=== PATIENT | male | born 1990 | race Caucasian/White ===

== ENCOUNTER 2016-08-12 03:09 | Inpatient (IN) | payer OTHER ==
[2016-08-11 03:15] VITALS: O2SAT 100
[~2016-08-12] VITALS: Ht 175.3 cm; Wt 70.0 kg
[2016-08-12] VITALS (16 sets, daily range): BP systolic 83–127; BP diastolic 50–82; PULSE 51–140; RESP 17–25; TEMP 97.8–98.7; O2SAT 96–100
[2016-08-12] MEDS ORDERED: ONDANSETRON HCL 4 MG/2 ML VIAL ONE (03:23)
[2016-08-12] MEDS ORDERED: MIDAZOLAM HCL 5 MG/ML VIAL (1 ML) ONE (03:23)
[2016-08-12] MEDS ORDERED: ceFAZolin 2 GM PREMIX 50 ML ONE (03:23)
[2016-08-12] MEDS ORDERED: LIDOCAINE 1%/EPINEPHrine 1:100,000 SOLN 20 ML VIAL ONE (03:26)
[2016-08-12] MEDS ORDERED: ceFAZolin 2 GM PREMIX 50 ML IV STA (03:30)
[2016-08-12] MEDS ORDERED: ONDANSETRON HCL 4 MG/2 ML VIAL IV ONE (03:30)
[2016-08-12 03:34] LABS: I-STAT POTASSIUM 3.2 MMOL/L (3.5-4.9)
[2016-08-12 03:36] LABS: AUTOMATED NEUTROPHIL # 3.8 TH/MM3 (1.8-7.7); BASOPHIL % 0.5 % (0.0-2.0); EOSINOPHIL # 0.2 TH/MM3 (0-0.4); EOSINOPHIL % 2.3 % (0.0-4.0); HEMATOCRIT 35.3 % (39.0-51.0); HEMO FLAGS DIFF FINAL; LYMPHOCYTE # 2.5 TH/MM3 (1.0-4.8); MEAN CELL VOLUME 91.7 FL (80.0-100.0); MEAN CORPUSCULAR HEMOGLOBIN 32.5 PG (27.0-34.0); MEAN CORPUSCULAR HGB CONC 35.5 % (32.0-36.0); MONO % 12.1 % (0.0-8.0); NEUT % 51.1 % (16.0-70.0); PLATELET COUNT 227 TH/MM3 (150-450); RED BLOOD COUNT 3.85 MIL/MM3 (4.50-5.90); RED CELL DISTRIBUTION WIDTH 12.4 % (11.6-17.2); WHITE BLOOD COUNT 7.4 TH/MM3 (4.0-11.0)
[2016-08-12] MEDS: LACTATED RINGER'S 1000 ML INJ 1,000 ML IV SCH ×2 (03:40→14:30)
[2016-08-12] MEDS ORDERED: DIPHTH/TETANUS/ACEL PERTUSSIS (BOOSTER) 0.5 ML VIAL/PFS IM ONE (03:46)
[2016-08-12 03:48] LABS: APTT (PATIENT) 28.5 SEC (24.3-30.1); INTERNATIONAL NORMALIZED RATIO 1.2 RATIO; PROTHROMBIN TIME - PATIENT 13.5 SEC (9.8-11.6)
[2016-08-12] MEDS ORDERED: IOHEXOL 350 MG/ML 10 ML VIAL (for RAD DIAG) IV ONE (03:55)
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
--- NOTE | 2016-08-12 03:58 | RADRPT ---
EXAM DATE/TIME: 08/12/2016 03:09 [facility] COMPARISON: CHEST SINGLE AP, August 12, 2016, 3:09. INDICATIONS : Left sided chest tube placement. MEDICAL HISTORY : None. SURGICAL HISTORY : None. ENCOUNTER: Subsequent ACUITY: 1 day PAIN SCORE: 10/10 LOCATION: Left chest FINDINGS: Right lung is clear. Heart size normal. There is left lung consolidation greatest in the left lower l obe. Interval placement of a left-sided chest tube, and a small left apical pneumothorax is identifie d. Osseous structures are intact. CONCLUSION: Left lung consolidation and small left apical pneumothorax. Carlin Mantilla MD on August 12, 2016 at 3:56 Board Certified Radiologist. This report was verified electronically.
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
[2016-08-12] MEDS ORDERED: CHLORHEXIDINE GLUCONATE 2 % 1 PACK (2 CLOTHS) TOP PRN (04:30)
[2016-08-12] MEDS ORDERED: ONDANSETRON HCL 4 MG/2 ML VIAL IV PRN (04:30)
[2016-08-12] MEDS ORDERED: MISCELLANEOUS NURSING INFORMATION XX SCH (04:30)
[2016-08-12] MEDS ORDERED: MAGNESIUM HYDROXIDE SUSP 30 ML CUP PO PRN (04:30)
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
[2016-08-12 05:43] LABS: AUTOMATED NEUTROPHIL # 7.9 TH/MM3 (1.8-7.7); BASOPHIL # 0.1 TH/MM3 (0-0.2); BASOPHIL % 0.5 % (0.0-2.0); EOSINOPHIL # 0.2 TH/MM3 (0-0.4); EOSINOPHIL % 1.4 % (0.0-4.0); HEMATOCRIT 33.7 % (39.0-51.0); HEMO FLAGS DIFF FINAL; LYMPH % 19.4 % (9.0-44.0); LYMPHOCYTE # 2.1 TH/MM3 (1.0-4.8); MEAN CELL VOLUME 89.3 FL (80.0-100.0); MEAN CORPUSCULAR HEMOGLOBIN 30.3 PG (27.0-34.0); MONO % 6.8 % (0.0-8.0); NEUT % 71.9 % (16.0-70.0); PLATELET COUNT 243 TH/MM3 (150-450); RED BLOOD COUNT 3.78 MIL/MM3 (4.50-5.90); RED CELL DISTRIBUTION WIDTH 14.5 % (11.6-17.2)
[2016-08-12] MEDS ORDERED: SODIUM CHLOR 0.9% 250 ML INJ 250 ML IV ONE (05:45)
[2016-08-12 06:09] LABS: BLOOD GAS BASE EXCESS 0.2 mmol/L (-2-2); BLOOD GAS CARBOXYHEMOGLOBIN 2.8 % (0-4); BLOOD GAS HCO3 25 mmol/L (22-26); BLOOD GAS METHEMOGLOBIN 1.9 % (0-2); BLOOD GAS O2 HGB SATURATION 93 % (90-100); BLOOD GAS OXYGEN CONTENT 16.2 Vol % (12.0-20.0); BLOOD GAS PCO2 42 mmHg (38-42); BLOOD GAS PO2 104 mmHG (61-120); BLOOD GAS TOTAL HGB 12.3 G/DL (12.0-16.0)
[2016-08-12 06:10] LABS: CRITICAL VALUE NO; DRAW SITE RT RADIAL; LITER FLOW 2 L/M; NUMBER OF ARTERIAL PUNCTURES 1; OXYGEN DEVICE NASAL CANNULA; STAT YES; ULNAR PULSE PRESENT
[2016-08-12] MEDS ORDERED: TRANEXAMIC ACID INJ 700 MG in SODIUM CHLORIDE 0.9% INJ 100 ML IV ONE (06:15)
[2016-08-12] MEDS ORDERED: TRANEXAMIC ACID 1 GM PRIOR TO PROCEDURE IV SCH ×2 (08:00)
[2016-08-12] MEDS ORDERED: TRANEXAMIC ACID 1 GM POST-OP IV SCH ×2 (08:30)
[2016-08-12] MEDS: DOCUSATE SODIUM 100 MG CAP PO SCH ×2 (09:00→19:59)
[2016-08-12] MEDS: BACITRACIN TOP OINT 15 GM TUBE TOP SCH ×2 (09:00→20:00)
[2016-08-12] MEDS: ACETAMINOPHEN 325 MG TAB PO PRN (12:45)
[2016-08-12] MEDS: CYCLOBENZAPRINE HCL 10 MG TAB PO PRN (15:38)
[2016-08-12] MEDS ORDERED: DO NOT ADM ANY ANTICOAGULANT DRUGS XX PRN (18:27)
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
[2016-08-12] MEDS: FAMOTIDINE 20 MG TAB PO SCH (19:59)
[2016-08-12 23:18] LABS: HEMATOCRIT 27.1 % (39.0-51.0); REVIEW FLAG FINAL
[2016-08-13] VITALS: BP 101/54; PULSE 85; RESP 19; TEMP 97.2; O2SAT 96
[2016-08-13] MEDS: LACTATED RINGER'S 1000 ML INJ 1,000 ML IV SCH ×3 (00:32→21:40)
[2016-08-13] MEDS: CHLORHEXIDINE GLUCONATE 2 % 1 PACK (2 CLOTHS) TOP SCH (03:54)
[2016-08-13 04:00] VITALS: BP 110/58; PULSE 90; RESP 21; TEMP 96.8; O2SAT 93
[2016-08-13 06:44] LABS: AUTOMATED NEUTROPHIL # 3.5 TH/MM3 (1.8-7.7); BASOPHIL % 0.5 % (0.0-2.0); EOSINOPHIL # 0.2 TH/MM3 (0-0.4); EOSINOPHIL % 3.1 % (0.0-4.0); HEMATOCRIT 25.9 % (39.0-51.0); HEMO FLAGS DIFF FINAL; LYMPH % 34.3 % (9.0-44.0); LYMPHOCYTE # 2.3 TH/MM3 (1.0-4.8); MEAN CELL VOLUME 87.9 FL (80.0-100.0); MEAN CORPUSCULAR HEMOGLOBIN 31.2 PG (27.0-34.0); MEAN CORPUSCULAR HGB CONC 35.5 % (32.0-36.0); MONO % 11.2 % (0.0-8.0); NEUT % 50.9 % (16.0-70.0); PLATELET COUNT 148 TH/MM3 (150-450); RED BLOOD COUNT 2.94 MIL/MM3 (4.50-5.90); RED CELL DISTRIBUTION WIDTH 14.8 % (11.6-17.2); WHITE BLOOD COUNT 6.8 TH/MM3 (4.0-11.0)
[2016-08-13 06:51] LABS: BICARBONATE 29.2 MEQ/L (21.0-32.0); POTASSIUM 3.5 MEQ/L (3.5-5.1)
[2016-08-13 08:00] VITALS: BP 105/55; PULSE 80; RESP 17; TEMP 98.6; O2SAT 95
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
[2016-08-13] MEDS: CYCLOBENZAPRINE HCL 10 MG TAB PO PRN ×3 (09:44→21:38)
[2016-08-13] MEDS: DOCUSATE SODIUM 100 MG CAP PO SCH ×2 (09:51→21:38)
[2016-08-13] MEDS ORDERED: INFLUENZA VIRUS VACCINE (QUADRIVALENT) 0.5 ML SYR IM ONE (10:00)
[2016-08-13] MEDS ORDERED: PNEUMOCOCCAL POLYVALENT INJ 25 MCG/0.5 ML SYR IM ONE (10:00)
[2016-08-13 12:00] VITALS: BP 111/58; PULSE 78; RESP 18; TEMP 98.4; O2SAT 95
[2016-08-13 14:02] VITALS: O2SAT 94
[2016-08-13] MEDS: ACETAMINOPHEN 325 MG TAB PO PRN ×2 (14:15→21:38)
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
[2016-08-13 20:00] VITALS: BP 119/58; PULSE 95; RESP 17; TEMP 97.2; O2SAT 97
[2016-08-13] MEDS: FAMOTIDINE 20 MG TAB PO SCH (21:38)
[2016-08-13] MEDS: BACITRACIN TOP OINT 15 GM TUBE TOP SCH (21:40)
[2016-08-14] VITALS: BP 114/60; PULSE 87; RESP 17; TEMP 97; O2SAT 99
[2016-08-14] MEDS: CHLORHEXIDINE GLUCONATE 2 % 1 PACK (2 CLOTHS) TOP SCH (04:00)
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
[2016-08-14] MEDS: CYCLOBENZAPRINE HCL 10 MG TAB PO PRN ×2 (04:44→21:54)
[2016-08-14] MEDS: ACETAMINOPHEN 325 MG TAB PO PRN (04:45)
[2016-08-14] MEDS: LACTATED RINGER'S 1000 ML INJ 1,000 ML IV SCH (04:49)
[2016-08-14 04:58] LABS: HEMATOCRIT 24.7 % (39.0-51.0); REVIEW FLAG FINAL
[2016-08-14 08:00] VITALS: BP 117/65; PULSE 85; RESP 18; TEMP 97.4; O2SAT 99
[2016-08-14] MEDS ORDERED: LACTULOSE SYRUP 20 GM/30 ML CUP PO ONE (09:00)
[2016-08-14 12:00] VITALS: BP 119/73; PULSE 85; RESP 18; TEMP 97.6; O2SAT 98
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
[2016-08-14 20:00] VITALS: BP 116/63; PULSE 93; RESP 17; TEMP 99.1; O2SAT 99
[2016-08-14] MEDS: FAMOTIDINE 20 MG TAB PO SCH (21:54)
[2016-08-14] MEDS: DOCUSATE SODIUM 100 MG CAP PO SCH (21:54)
[2016-08-15] VITALS (8 sets, daily range): BP systolic 110–120; BP diastolic 55–66; PULSE 80–95; RESP 17–20; TEMP 96.9–99.6; O2SAT 95–100
[2016-08-15] MEDS: CHLORHEXIDINE GLUCONATE 2 % 1 PACK (2 CLOTHS) TOP SCH (03:57)
[2016-08-15 05:25] LABS: REVIEW FLAG FINAL
[2016-08-15] MEDS: CYCLOBENZAPRINE HCL 10 MG TAB PO PRN ×2 (05:49→21:40)
[2016-08-15 05:53] LABS: BICARBONATE 31.2 MEQ/L (21.0-32.0); POTASSIUM 3.6 MEQ/L (3.5-5.1)
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
[2016-08-15] MEDS ORDERED: LACTULOSE SYRUP 20 GM/30 ML CUP PO ONE (07:30)
[2016-08-15] MEDS: DOCUSATE SODIUM 100 MG CAP PO SCH ×2 (09:45→21:40)
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
[2016-08-15] MEDS: FAMOTIDINE 20 MG TAB PO SCH (21:40)
[2016-08-15] MEDS: ACETAMINOPHEN 325 MG TAB PO PRN (21:40)
[2016-08-15] MEDS: SODIUM CHLORIDE 0.9% FLUSH 5 ML FLUSH IVF PRN (21:40)
[2016-08-16] VITALS: BP 117/57; PULSE 83; RESP 18; TEMP 97.8; O2SAT 100
[2016-08-16] MEDS: CHLORHEXIDINE GLUCONATE 2 % 1 PACK (2 CLOTHS) TOP SCH (00:56)
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
[2016-08-16 08:00] VITALS: BP 107/63; PULSE 77; RESP 17; TEMP 97.4; O2SAT 99
[2016-08-16] MEDS: DOCUSATE SODIUM 100 MG CAP PO SCH ×2 (08:30→21:21)
[2016-08-16] MEDS: CYCLOBENZAPRINE HCL 10 MG TAB PO PRN ×2 (08:32→16:53)
[2016-08-16 10:47] VITALS: O2SAT 100
[2016-08-16 12:00] VITALS: BP 121/73; PULSE 92; RESP 17; TEMP 96.8; O2SAT 100
[2016-08-16] MEDS: ACETAMINOPHEN 325 MG TAB PO PRN ×2 (13:51→21:21)
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
[2016-08-16 16:00] VITALS: BP 116/72; PULSE 95; RESP 17; TEMP 97.9; O2SAT 100
[2016-08-16 20:00] VITALS: BP 107/55; PULSE 97; RESP 26; TEMP 98.6; O2SAT 100
[2016-08-16] MEDS: FAMOTIDINE 20 MG TAB PO SCH (21:21)
[2016-08-17] VITALS (7 sets, daily range): BP systolic 116–142; BP diastolic 60–84; PULSE 89–130; RESP 16–26; TEMP 96.8–99.9; O2SAT 96–99
[2016-08-17] MEDS: CHLORHEXIDINE GLUCONATE 2 % 1 PACK (2 CLOTHS) TOP SCH (04:00)
[2016-08-17] MEDS: CYCLOBENZAPRINE HCL 10 MG TAB PO PRN ×2 (05:28→19:41)
[2016-08-17] MEDS: ACETAMINOPHEN 325 MG TAB PO PRN ×2 (05:29→19:41)
[2016-08-17] MEDS: DOCUSATE SODIUM 100 MG CAP PO SCH ×2 (08:34→19:40)
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
[2016-08-17] MEDS: FAMOTIDINE 20 MG TAB PO SCH (19:40)
[2016-08-17] MEDS ORDERED: oxyCODONE/ACETAMINOPHEN 5 MG/325 MG TAB PO PRN (20:15)
[2016-08-17] MEDS: MORPHINE SULFATE 4 MG/ML INJ IV PRN (20:18)
[2016-08-17] MEDS: oxyCODONE/ACETAMINOPHEN 5 MG/325 MG TAB PO PRN (21:40)
[2016-08-18] VITALS: BP 128/77; PULSE 97; RESP 17; TEMP 98.2; O2SAT 97
[2016-08-18] MEDS: MORPHINE SULFATE 4 MG/ML INJ IV PRN ×4 (00:01→17:17)
[2016-08-18] MEDS: CHLORHEXIDINE GLUCONATE 2 % 1 PACK (2 CLOTHS) TOP SCH ×2 (01:28→21:24)
[2016-08-18] MEDS: oxyCODONE/ACETAMINOPHEN 5 MG/325 MG TAB PO PRN ×5 (02:06→21:24)
[2016-08-18] MEDS: CYCLOBENZAPRINE HCL 10 MG TAB PO PRN ×3 (05:05→21:24)
[2016-08-18 07:36] VITALS: BP 119/69; PULSE 106; RESP 18; TEMP 99.5; O2SAT 94
[2016-08-18] MEDS ORDERED: LACTULOSE SYRUP 20 GM/30 ML CUP PO ONE (08:30)
[2016-08-18] MEDS: DOCUSATE SODIUM 100 MG CAP PO SCH ×2 (08:47→21:00)
[2016-08-18 08:59] VITALS: O2SAT 95
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
[2016-08-18 12:00] VITALS: BP 115/67; PULSE 111; RESP 24; TEMP 99.2; O2SAT 92
[2016-08-18 16:00] VITALS: BP 111/69; PULSE 107; RESP 20; TEMP 98.5; O2SAT 92
--- NOTE | 2016-08-18 16:47 | RADRPT ---
EXAM DATE/TIME: 08/18/2016 16:19 [facility] COMPARISON: CHEST SINGLE AP, August 17, 2016, 15:20. INDICATIONS : Chest tube removal. MEDICAL HISTORY : None. SURGICAL HISTORY : None. ENCOUNTER: Subsequent ACUITY: 4 - 6 days PAIN SCORE: 6/10 LOCATION: Left chest. FINDINGS: A single view of the chest demonstrates interval removal of a left thoracostomy tube. Accounting for rightward rotation, the hemithoraces remain symmetric. There is no pneumothorax there is increasing airspace disease in the left hemithorax with possible associated effusion. Right lung remains clear. Accounting for technique, heart size is normal. Osseous structures are intact. CONCLUSION: 1. Interval removal of left thoracostomy tube without pneumothorax. 2. However, there is increasing airspace disease in the left chest with possible associated effusion. 3. Right lung remains clear. Stanley Smith MD on August 18, 2016 at 16:43 Board Certified Radiologist. This report was verified electronically.
[2016-08-18 19:20] VITALS: BP 121/73; PULSE 107; RESP 28; TEMP 98.7; O2SAT 91
[2016-08-18] MEDS: FAMOTIDINE 20 MG TAB PO SCH (21:24)
[2016-08-19] VITALS: BP_SYST 118; BP_SYST 119; BP_DIAS 64; BP_DIAS 68; PULSE 98; RESP 18; RESP 24; TEMP 97.8; TEMP 98.1; O2SAT 91
[2016-08-19] MEDS: SODIUM CHLORIDE 0.9% FLUSH 5 ML FLUSH IVF PRN ×3 (00:13→08:47)
[2016-08-19] MEDS: MORPHINE SULFATE 4 MG/ML INJ IV PRN ×3 (00:13→08:46)
[2016-08-19] MEDS: oxyCODONE/ACETAMINOPHEN 5 MG/325 MG TAB PO PRN ×2 (05:45→13:27)
[2016-08-19] MEDS: CYCLOBENZAPRINE HCL 10 MG TAB PO PRN (05:45)
[2016-08-19 08:00] VITALS: BP 109/66; PULSE 106; RESP 20; TEMP 98.5; O2SAT 95
[2016-08-19] MEDS: DOCUSATE SODIUM 100 MG CAP PO SCH (08:47)
[2016-08-19] MEDS ORDERED: BISACODYL 10 MG SUPP RECTAL ONE (09:00)
[2016-08-19] MEDS ORDERED: BISACODYL EC 5 MG TABEC PO ONE (09:00)
[2016-08-19 12:00] VITALS: BP 112/68; PULSE 111; RESP 20; TEMP 98; O2SAT 94
[2016-08-19] MEDS ORDERED: MILKSUS PO (13:32)
[2016-08-19] MEDS ORDERED: DOCU1CAP39 PO (13:32)
[2016-08-19] MEDS ORDERED: ACET325T PO (13:32)
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
[2016-08-19] MEDS: ACETAMINOPHEN 325 MG TAB PO PRN (17:02)
== END 2016-08-19 17:17 | disposition home or self-care (01) | DRG 964 ==
LOC: NEPI 03:09 → NEDA 03:56 → EDBD 03:56 → NEDA 04:27 → N03A 07:18 → N07B 20:44
PROVIDERS: ADMIT Surgery; ATTEND Surgery
PROC: 0W9B30Z Drainage of Left Pleural Cavity with Drainage Device, Percutaneous Approach (ICD-10-PCS; principal; 2016-08-12)
PROC: 30233N1 Transfusion of Nonautologous Red Blood Cells into Peripheral Vein, Percutaneous Approach (ICD-10-PCS; 2016-08-12)
DX: S36.113A Laceration of liver, unspecified degree, initial encounter (principal); S27.0XXA Traumatic pneumothorax, initial encounter; T79.7XXA Traumatic subcutaneous emphysema, initial encounter; S31.610A Laceration without foreign body of abdominal wall, right upper quadrant with penetration into peritoneal cavity, initial encounter; X99.1XXA Assault by knife, initial encounter; Y93.9 Activity, unspecified; Y92.9 Unspecified place or not applicable; Z23 Encounter for immunization
CPT/HCPCS: 32551; 36430; 36600; 71010; 71260; 74177; 80048; 82435; 82565; 82805; 82947; 83605; 84132; 84295; 84520; 85014; 85018; 85025; 85610; 85730; 86850; 86900; 86901; 86920; 90686; 90715; 90732; 94150; 96374; 96375; 99291; 99292; G0390; J0690; J2250; J2270; J2405; J3010; J7050; J7120; P9016; Q2038; Q9967

== ENCOUNTER 2016-08-21 05:57 | Inpatient (IN) | payer OTHER ==
[~2016-08-21] VITALS: Ht 182.9 cm; Wt 76.3 kg
[2016-08-21] VITALS (8 sets, daily range): BP systolic 100–114; BP diastolic 55–65; PULSE 92–100; RESP 19–36; TEMP 98.1–99.3; O2SAT 92–96
[~2016-08-21 05:57] MED LIST: ACET325T PO; DOCU1CAP39 PO; MILKSUS PO
--- NOTE | 2016-08-21 07:44 | RADRPT ---
EXAM DATE/TIME: 08/21/2016 07:17 [facility] COMPARISON: CHEST SINGLE AP, August 18, 2016, 16:19. INDICATIONS : Shortness of breath. MEDICAL HISTORY : None. SURGICAL HISTORY : Left chest tube ENCOUNTER: Initial ACUITY: 1 week PAIN SCORE: 5/10 LOCATION: Left chest FINDINGS: A single portable frontal view of the chest shows no interval change. There is parenchymal consolidat ion involving the left lung most pronounced within the mid and lower lobe. Suspected small left effus ion. Right lung is clear. Heart is normal in size. Mild scoliotic curvature. No pneumothorax. CONCLUSION: Unchanged left lung consolidation with small effusion. Isaac Dumont Jr., MD on August 21, 2016 at 7:41 Board Certified Radiologist. This report was verified electronically.
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
[2016-08-21] MEDS ORDERED: SODIUM CHLOR 0.9% 1000 ML INJ 1,000 ML IV ONE ×2 (07:56)
[2016-08-21] MEDS ORDERED: VANCOMYCIN INJ 1 MG in SODIUM CHLOR 0.9% 250 ML INJ 250 ML IV STA (07:56)
[2016-08-21] MEDS ORDERED: SODIUM CHLOR 0.9% 1000 ML INJ 100 ML IV ONE (07:56)
[2016-08-21] MEDS ORDERED: PIPERACIL-TAZO 4.5 GM PREMIX 100 ML IV STA (07:56)
[2016-08-21 09:22] LABS: AUTOMATED NEUTROPHIL # 9.6 TH/MM3 (1.8-7.7); BASOPHIL % 0.3 % (0.0-2.0); EOSINOPHIL # 0.1 TH/MM3 (0-0.4); EOSINOPHIL % 0.9 % (0.0-4.0); HEMATOCRIT 26.1 % (39.0-51.0); HEMO FLAGS DIFF FINAL; LYMPH % 10.9 % (9.0-44.0); LYMPHOCYTE # 1.3 TH/MM3 (1.0-4.8); MEAN CELL VOLUME 88.1 FL (80.0-100.0); MEAN CORPUSCULAR HEMOGLOBIN 30.6 PG (27.0-34.0); MEAN CORPUSCULAR HGB CONC 34.8 % (32.0-36.0); MONO % 9.9 % (0.0-8.0); PLATELET COUNT 517 TH/MM3 (150-450); RED BLOOD COUNT 2.96 MIL/MM3 (4.50-5.90); RED CELL DISTRIBUTION WIDTH 14.5 % (11.6-17.2); WHITE BLOOD COUNT 12.3 TH/MM3 (4.0-11.0)
[2016-08-21 09:38] LABS: BACTERIA, URINE RARE /hpf; BLOOD, URINE SMALL (NEG); COMMENT (UR) CATH-CULTURE IND; CULTURE IF INDICATED CATH CULTURE IND; GLUCOSE,URINE NEG (NEG); KETONE, URINE NEG (NEG); NITRITE,URINE NEG (NEG); PH, URINE 6.5 (5.0-8.5); URINE COLOR YELLOW (YELLW/STRAW)
[2016-08-21 09:49] LABS: ALKALINE PHOSPHATASE 163 U/L (45-117); ALT (GPT) 67 U/L (12-78); ANION GAP 7 MEQ/L (5-15); AST (GOT) 146 U/L (15-37); BICARBONATE 28.3 MEQ/L (21.0-32.0); BLOOD UREA NITROGEN 16 MG/DL (7-18); CHLORIDE 99 MEQ/L (98-107); GLOMERULAR FILTRATION RATE 126 ML/MIN (>89); POTASSIUM 3.5 MEQ/L (3.5-5.1); SODIUM (NA) 134 MEQ/L (136-145)
[2016-08-21] MEDS ORDERED: ONDANSETRON HCL 4 MG/2 ML VIAL IV PRN (10:30)
[2016-08-21] MEDS ORDERED: Post-op Orders (for Pharmacy) MISC XX ONE (10:30)
[2016-08-21] MEDS ORDERED: NALOXONE HCL 0.4 MG/ML AMP IV PRN ×2 (10:30→18:45)
[2016-08-21] MEDS ORDERED: MORPHINE SULFATE 4 MG/ML INJ IV PRN (10:30)
[2016-08-21] MEDS ORDERED: SODIUM CHLORIDE 0.9% FLUSH 5 ML FLUSH IVF PRN ×2 (10:30→18:45)
[2016-08-21] MEDS: PANTOPRAZOLE SODIUM 40 MG VIAL IV SCH (11:12)
[2016-08-21] MEDS: SODIUM CHLOR 0.9% 1000 ML INJ 1,000 ML IV SCH ×2 (11:13→20:28)
[2016-08-21] MEDS ORDERED: PHENYLEPH/NS 1000 MCG/10 ML SYR IV ONE (12:00)
[2016-08-21] MEDS ORDERED: NORMOSOL R INJ 1,000 ML IV ONE (12:00)
[2016-08-21] MEDS ORDERED: PROPOFOL 200 MG/20 ML AMP IV ONE (12:00)
[2016-08-21] MEDS ORDERED: SODIUM CHLORID 0.9% 500 ML INJ 500 ML IV ONE (12:00)
[2016-08-21] MEDS ORDERED: ONDANSETRON HCL 4 MG/2 ML VIAL IV PUSH ONE (12:00)
[2016-08-21] MEDS ORDERED: FAMOTIDINE 20 MG/2 ML VIAL ONE (15:36)
[2016-08-21] MEDS ORDERED: MIDAZOLAM HCL 2 MG/2 ML VIAL ONE (15:36)
[2016-08-21] MEDS ORDERED: SUGAMMADEX SODIUM 200 MG/2 ML VIAL IV PUSH ONE ×2 (17:03)
[2016-08-21] MEDS ORDERED: fentaNYL CITRATE 250 MCG/5 ML AMP ONE ×2 (18:50)
[2016-08-21] MEDS ORDERED: MORPHINE SULFATE 4 MG/ML INJ ONE (18:50)
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
[2016-08-21] MEDS ORDERED: DO NOT ADM ANY ANTICOAGULANT DRUGS XX PRN (19:30)
[2016-08-21] MEDS: PIPERACIL-TAZO 4.5 GM PREMIX 100 ML IV SCH (20:00)
[2016-08-21] MEDS: DOCUSATE SODIUM 100 MG CAP PO SCH (21:00)
[2016-08-21] MEDS ORDERED: SODIUM CHLORIDE 0.9% FLUSH 5 ML FLUSH IVF SCH (21:00)
[2016-08-21] MEDS: SODIUM CHLORIDE 0.9% FLUSH 5 ML FLUSH IVF SCH (21:00)
[2016-08-21] MEDS: PCA - TOTAL MG MORPHINE DELIVERED PER SHIFT SCH (22:00)
[2016-08-21] MEDS: VANCOMYCIN INJ 1,000 MG in SODIUM CHLOR 0.9% 250 ML INJ 250 ML IV SCH (23:30)
[2016-08-22] VITALS (12 sets, daily range): BP systolic 114–129; BP diastolic 61–83; PULSE 98–112; RESP 18–26; TEMP 98–101; O2SAT 92–99
[2016-08-22] MEDS: SODIUM CHLOR 0.9% 1000 ML INJ 1,000 ML IV SCH (04:46)
[2016-08-22] MEDS: PIPERACIL-TAZO 4.5 GM PREMIX 100 ML IV SCH ×3 (04:46→19:51)
[2016-08-22] MEDS: MORPHINE SULFATE 30 MG/30 ML PCA IV SCH (04:47)
[2016-08-22 04:51] LABS: AUTOMATED NEUTROPHIL # 8.6 TH/MM3 (1.8-7.7); BASOPHIL % 0.3 % (0.0-2.0); EOSINOPHIL # 0.3 TH/MM3 (0-0.4); EOSINOPHIL % 2.1 % (0.0-4.0); HEMATOCRIT 25.4 % (39.0-51.0); LYMPH % 18.2 % (9.0-44.0); LYMPHOCYTE # 2.2 TH/MM3 (1.0-4.8); MEAN CELL VOLUME 88.9 FL (80.0-100.0); MEAN CORPUSCULAR HEMOGLOBIN 30.3 PG (27.0-34.0); MONO % 9.3 % (0.0-8.0); NEUT % 70.1 % (16.0-70.0); PLATELET COUNT 585 TH/MM3 (150-450); RED BLOOD COUNT 2.85 MIL/MM3 (4.50-5.90); RED CELL DISTRIBUTION WIDTH 14.8 % (11.6-17.2); WHITE BLOOD COUNT 12.3 TH/MM3 (4.0-11.0)
[2016-08-22 04:56] LABS: HEMO FLAGS AUTO DIFF
[2016-08-22 05:10] LABS: BICARBONATE 27.6 MEQ/L (21.0-32.0); POTASSIUM 3.7 MEQ/L (3.5-5.1)
[2016-08-22 05:29] LABS: SCAN/DIFF AUTO DIFF CONFIRMED
[2016-08-22] MEDS: PCA - TOTAL MG MORPHINE DELIVERED PER SHIFT SCH ×3 (06:00→22:00)
--- NOTE | 2016-08-22 06:50 | RADRPT ---
EXAM DATE/TIME: 08/22/2016 06:10 [facility] COMPARISON: CHEST SINGLE AP, August 21, 2016, 7:17. INDICATIONS : Post thoracotomy. MEDICAL HISTORY : None. SURGICAL HISTORY : Chest tube, left. ENCOUNTER: Subsequent ACUITY: 1 week PAIN SCORE: Non-responsive. LOCATION: Bilateral chest FINDINGS: The cardiac silhouette is enlarged in transverse diameter. There is left lower lobe atelectasis versu s pneumonia. A left chest tube is in place. There is no evidence of pneumothorax. The right lung is f ree of acute parenchymal opacity. CONCLUSION: 1. Postsurgical changes following left thoracotomy. There is no evidence of pneumothorax. Isaac Reyes MD on August 22, 2016 at 6:48 Board Certified Radiologist. This report was verified electronically.
[2016-08-22] MEDS: VANCOMYCIN INJ 1,000 MG in SODIUM CHLOR 0.9% 250 ML INJ 250 ML IV SCH ×2 (08:06→19:51)
[2016-08-22] MEDS: SODIUM CHLORIDE 0.9% FLUSH 5 ML FLUSH IVF SCH ×2 (08:07→20:11)
[2016-08-22] MEDS: DOCUSATE SODIUM 100 MG CAP PO SCH ×2 (08:08→19:50)
[2016-08-22] MEDS ORDERED: INFLUENZA VIRUS VACCINE (QUADRIVALENT) 0.5 ML SYR IM ONE (09:00)
[2016-08-22] MEDS ORDERED: PNEUMOCOCCAL POLYVALENT INJ 25 MCG/0.5 ML SYR IM ONE (09:00)
[2016-08-22] MEDS: PANTOPRAZOLE SODIUM 40 MG VIAL IV SCH (11:00)
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
[2016-08-23 00:59] VITALS: BP 118/55; PULSE 109; RESP 21; TEMP 100.4; O2SAT 94
[2016-08-23] MEDS: PIPERACIL-TAZO 4.5 GM PREMIX 100 ML IV SCH ×3 (03:16→20:00)
[2016-08-23] MEDS: MORPHINE SULFATE 30 MG/30 ML PCA IV SCH (03:17)
[2016-08-23 04:27] VITALS: BP 109/59; PULSE 111; RESP 21; TEMP 100.8; O2SAT 93
[2016-08-23] MEDS: PCA - TOTAL MG MORPHINE DELIVERED PER SHIFT SCH ×3 (05:42→21:24)
--- NOTE | 2016-08-23 06:35 | RADRPT ---
EXAM DATE/TIME: 08/23/2016 05:28 [facility] COMPARISON: CHEST SINGLE AP, August 22, 2016, 6:10. INDICATIONS : Shortness of breath. MEDICAL HISTORY : None. SURGICAL HISTORY : Thoracotomy. ENCOUNTER: Subsequent ACUITY: 1 week PAIN SCORE: Non-responsive. LOCATION: Bilateral chest FINDINGS: The cardiac silhouette is enlarged in transverse diameter. A left chest tube is in place. There is no evidence of pneumothorax. There is left lower lobe atelectasis versus pneumonia. Loculated fluid is present laterally in the left hemithorax. The right lung is free of acute parenchymal opacity. CONCLUSION: 1. There is no evidence of pneumothorax. 2. Left lower lobe atelectasis versus pneumonia. There has been no significant change when compared t o the prior exam. Isaac Reyes MD on August 23, 2016 at 6:33 Board Certified Radiologist. This report was verified electronically.
[2016-08-23 06:46] LABS: AUTOMATED NEUTROPHIL # 7.7 TH/MM3 (1.8-7.7); BASOPHIL # 0.1 TH/MM3 (0-0.2); BASOPHIL % 0.5 % (0.0-2.0); EOSINOPHIL # 0.5 TH/MM3 (0-0.4); HEMATOCRIT 28.1 % (39.0-51.0); LYMPH % 19.5 % (9.0-44.0); LYMPHOCYTE # 2.3 TH/MM3 (1.0-4.8); MEAN CELL VOLUME 88.4 FL (80.0-100.0); MEAN CORPUSCULAR HEMOGLOBIN 30.2 PG (27.0-34.0); MEAN CORPUSCULAR HGB CONC 34.1 % (32.0-36.0); PLATELET COUNT 613 TH/MM3 (150-450); RED BLOOD COUNT 3.18 MIL/MM3 (4.50-5.90); RED CELL DISTRIBUTION WIDTH 14.9 % (11.6-17.2)
[2016-08-23 06:55] LABS: ANION GAP 6 MEQ/L (5-15); AST (GOT) 185 U/L (15-37); BICARBONATE 31.1 MEQ/L (21.0-32.0); BLOOD UREA NITROGEN 9 MG/DL (7-18); CHLORIDE 98 MEQ/L (98-107); GLOMERULAR FILTRATION RATE 139 ML/MIN (>89); POTASSIUM 3.6 MEQ/L (3.5-5.1); SODIUM (NA) 135 MEQ/L (136-145)
[2016-08-23 06:58] LABS: ALKALINE PHOSPHATASE 205 U/L (45-117); ALT (GPT) 130 U/L (12-78); TOTAL BILIRUBIN ADULT 1.2 MG/DL (0.2-1.0)
[2016-08-23 07:09] LABS: HEMO FLAGS AUTO DIFF
[2016-08-23 08:00] VITALS: BP 121/62; PULSE 108; RESP 18; TEMP 100; O2SAT 92
[2016-08-23] MEDS ORDERED: ACETAMINOPHEN 325 MG TAB PO PRN (08:00)
[2016-08-23 08:15] LABS: BANDS 3 % (0-6); EOSINOPHILS 3 % (0-4); MYELOCYTES 3 % (0-0); NEUTROPHIL # MANUAL DIFF 8.6 TH/MM3 (1.8-7.7); POLYS (SEG NEUTROPHILS) 66 % (16-70); WBC DIFF SAMPLE 100
[2016-08-23 08:16] LABS: PLATELET ESTIMATE SMEAR HIGH (NORMAL); PLATELET MORPHOLOGY NORMAL (NORMAL); SCAN/DIFF FINAL DIFF MANUAL
[2016-08-23] MEDS: SODIUM CHLORIDE 0.9% FLUSH 5 ML FLUSH IVF SCH ×2 (09:00→20:00)
[2016-08-23] MEDS: DOCUSATE SODIUM 100 MG CAP PO SCH ×2 (09:14→20:00)
[2016-08-23] MEDS: VANCOMYCIN INJ 1,000 MG in SODIUM CHLOR 0.9% 250 ML INJ 250 ML IV SCH ×2 (09:15→21:24)
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
[2016-08-23] MEDS: ENOXAPARIN SODIUM 40 MG/0.4 ML SYRINGE SQ SCH (11:55)
[2016-08-23 12:00] VITALS: BP 117/67; PULSE 102; RESP 18; TEMP 98.4; O2SAT 94
[2016-08-23 16:00] VITALS: BP 113/64; PULSE 104; RESP 18; TEMP 98.5; O2SAT 93
[2016-08-23] MEDS: FAMOTIDINE 20 MG TAB PO SCH (20:00)
[2016-08-23] MEDS: MAGNESIUM HYDROXIDE SUSP 30 ML CUP PO SCH (20:00)
[2016-08-23 20:35] VITALS: BP 116/67; PULSE 109; RESP 17; TEMP 100.4; O2SAT 96
[2016-08-24 00:30] VITALS: BP 107/61; PULSE 102; RESP 17; TEMP 100.9; O2SAT 94
[2016-08-24] MEDS: PCA - TOTAL MG MORPHINE DELIVERED PER SHIFT SCH ×3 (04:06→22:00)
[2016-08-24] MEDS: PIPERACIL-TAZO 4.5 GM PREMIX 100 ML IV SCH ×3 (04:06→20:31)
[2016-08-24] MEDS: MORPHINE SULFATE 30 MG/30 ML PCA IV SCH (04:13)
[2016-08-24 04:35] VITALS: BP 107/58; PULSE 101; RESP 18; TEMP 99.8; O2SAT 95
--- NOTE | 2016-08-24 06:25 | RADRPT ---
EXAM DATE/TIME: 08/24/2016 05:20 [facility] COMPARISON: CHEST SINGLE AP, August 23, 2016, 5:28. INDICATIONS : Shortness of breath. MEDICAL HISTORY : None. SURGICAL HISTORY : Thoracotomy. ENCOUNTER: Subsequent ACUITY: 1 week PAIN SCORE: Non-responsive. LOCATION: Bilateral chest FINDINGS: The cardiac silhouette is normal in transverse diameter. A left chest tube is in place. There is no e vidence of pneumothorax. There is left lower lobe atelectasis versus pneumonia. The right lung is manuel e of acute parenchymal opacity. CONCLUSION: 1. Left lower lobe atelectasis versus pneumonia. There is no evidence of pneumothorax. Isaac Reyes MD on August 24, 2016 at 6:23 Board Certified Radiologist. This report was verified electronically.
[2016-08-24 08:00] VITALS: BP 101/55; PULSE 93; RESP 18; TEMP 98.8; O2SAT 95
[2016-08-24] MEDS: SODIUM CHLORIDE 0.9% FLUSH 5 ML FLUSH IVF SCH ×2 (09:00→20:31)
[2016-08-24] MEDS: VANCOMYCIN INJ 1,000 MG in SODIUM CHLOR 0.9% 250 ML INJ 250 ML IV SCH ×2 (09:35→21:19)
[2016-08-24] MEDS: DOCUSATE SODIUM 100 MG CAP PO SCH ×2 (09:35→20:31)
[2016-08-24] MEDS: oxyCODONE/ACETAMINOPHEN 5 MG/325 MG TAB PO PRN ×3 (09:41→22:49)
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
[2016-08-24] MEDS: ENOXAPARIN SODIUM 40 MG/0.4 ML SYRINGE SQ SCH (11:35)
[2016-08-24 11:58] VITALS: BP 105/61; PULSE 95; RESP 18; TEMP 97.7; O2SAT 94
[2016-08-24 17:38] VITALS: BP 102/66; PULSE 96; RESP 18; TEMP 98.8; O2SAT 95
[2016-08-24 19:40] VITALS: BP 121/71; PULSE 98; RESP 16; TEMP 96.5; O2SAT 96
[2016-08-24] MEDS: MAGNESIUM HYDROXIDE SUSP 30 ML CUP PO SCH (20:30)
[2016-08-24] MEDS: FAMOTIDINE 20 MG TAB PO SCH (20:31)
[2016-08-25 00:30] VITALS: BP 102/58; PULSE 90; RESP 17; TEMP 98.8; O2SAT 95
[2016-08-25] MEDS: PIPERACIL-TAZO 4.5 GM PREMIX 100 ML IV SCH ×3 (04:37→20:21)
[2016-08-25] MEDS: oxyCODONE/ACETAMINOPHEN 5 MG/325 MG TAB PO PRN ×5 (04:38→22:23)
[2016-08-25] MEDS: PCA - TOTAL MG MORPHINE DELIVERED PER SHIFT SCH (04:41)
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
[2016-08-25 08:00] VITALS: BP 99/53; PULSE 90; RESP 18; TEMP 97.5; O2SAT 96
[2016-08-25] MEDS ORDERED: LACTULOSE SYRUP 20 GM/30 ML CUP PO ONE (09:00)
[2016-08-25] MEDS: DOCUSATE SODIUM 50 MG/SENNA 8.6 MG TAB PO SCH ×2 (09:14→20:21)
[2016-08-25] MEDS: GABAPENTIN 300 MG CAP PO SCH ×3 (09:14→18:05)
[2016-08-25] MEDS: VANCOMYCIN INJ 1,000 MG in SODIUM CHLOR 0.9% 250 ML INJ 250 ML IV SCH ×2 (09:14→20:19)
[2016-08-25] MEDS: SODIUM CHLORIDE 0.9% FLUSH 5 ML FLUSH IVF SCH ×2 (09:15→20:19)
[2016-08-25] MEDS: ENOXAPARIN SODIUM 40 MG/0.4 ML SYRINGE SQ SCH (11:10)
[2016-08-25 12:00] VITALS: BP 120/71; PULSE 93; RESP 16; TEMP 95.7; O2SAT 98
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
[2016-08-25 16:42] VITALS: BP 109/59; PULSE 104; RESP 16; TEMP 97.2; O2SAT 96
[2016-08-25 20:05] VITALS: BP 120/59; PULSE 102; RESP 17; TEMP 98.6; O2SAT 94
[2016-08-25] MEDS: FAMOTIDINE 20 MG TAB PO SCH (20:19)
[2016-08-25] MEDS: MAGNESIUM HYDROXIDE SUSP 30 ML CUP PO SCH (20:21)
[2016-08-25 23:35] VITALS: BP 116/60; PULSE 99; RESP 16; TEMP 97.8; O2SAT 97
[2016-08-26] MEDS: oxyCODONE/ACETAMINOPHEN 5 MG/325 MG TAB PO PRN ×3 (05:08→08:38)
[2016-08-26] MEDS: PIPERACIL-TAZO 4.5 GM PREMIX 100 ML IV SCH ×2 (05:08→12:00)
[2016-08-26 08:00] VITALS: BP 104/57; PULSE 84; RESP 18; TEMP 97.4; O2SAT 96
[2016-08-26] MEDS: GABAPENTIN 300 MG CAP PO SCH ×2 (08:24→12:59)
[2016-08-26] MEDS: VANCOMYCIN INJ 1,000 MG in SODIUM CHLOR 0.9% 250 ML INJ 250 ML IV SCH (08:24)
[2016-08-26] MEDS: SODIUM CHLORIDE 0.9% FLUSH 5 ML FLUSH IVF SCH (08:25)
[2016-08-26] MEDS: DOCUSATE SODIUM 50 MG/SENNA 8.6 MG TAB PO SCH (08:25)
--- NOTE | 2016-08-26 10:21 | RADRPT ---
EXAM DATE/TIME: 08/26/2016 10:02 [facility] COMPARISON: CHEST SINGLE AP, August 25, 2016, 5:41. INDICATIONS : Chest tube removal MEDICAL HISTORY : Lupus SURGICAL HISTORY : Thoracotomy. ENCOUNTER: Subsequent ACUITY: 2 weeks PAIN SCORE: 0/10 LOCATION: Bilateral chest FINDINGS: A single view of the chest demonstrates left basilar pleural-parenchymal density. Left-sided chest tu be removed. No pneumothorax.. The cardiomediastinal contours are unremarkable. Osseous structures a re intact. CONCLUSION: 1. Persistent left basilar pleural-parenchymal density. 2. No pneumothorax. Daron Stewart MD on August 26, 2016 at 10:19 Board Certified Radiologist. This report was verified electronically.
[2016-08-26 12:00] VITALS: BP 112/60; PULSE 80; RESP 16; TEMP 97.9; O2SAT 98
[2016-08-26] MEDS: ENOXAPARIN SODIUM 40 MG/0.4 ML SYRINGE SQ SCH (12:08)
[2016-08-26] MEDS ORDERED: LEVA500T PO (12:20)
[2016-08-26] MEDS ORDERED: KETO10 PO (12:20)
[2016-08-26] MEDS: MAGNESIUM HYDROXIDE SUSP 30 ML CUP PO SCH (12:59)
[2016-08-26] MEDS ORDERED: MAGNESIUM CITRATE SOLN 300 ML BTL PO ONE (13:00)
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
== END 2016-08-26 13:24 | disposition home or self-care (01) | DRG 163 ==
LOC: NEPC 05:57 → NEDA 09:05 → HPAC 15:17 → N03B 08-22 01:00 → N06A 08-22 22:35
PROVIDERS: ADMIT Surgery; ATTEND Surgery
PROC: 0BCL4ZZ Extirpation of Matter from Left Lung, Percutaneous Endoscopic Approach (ICD-10-PCS; 2016-08-21)
PROC: 0W9B30Z Drainage of Left Pleural Cavity with Drainage Device, Percutaneous Approach (ICD-10-PCS; 2016-08-21)
PROC: 0BDP4ZZ Extraction of Left Pleura, Percutaneous Endoscopic Approach (ICD-10-PCS; principal; 2016-08-21 16:07)
DX: J94.2 Hemothorax (principal); J86.9 Pyothorax without fistula; J98.11 Atelectasis; J90 Pleural effusion, not elsewhere classified; M32.9 Systemic lupus erythematosus, unspecified; X99.9XXD Assault by unspecified sharp object, subsequent encounter; R50.82 Postprocedural fever; F32.9 Major depressive disorder, single episode, unspecified; F41.9 Anxiety disorder, unspecified; F17.210 Nicotine dependence, cigarettes, uncomplicated
CPT/HCPCS: 71010; 80048; 80053; 81001; 83605; 83735; 85007; 85025; 85027; 86403; 86850; 86900; 86901; 87015; 87040; 87070; 87086; 87102; 87116; 87147; 87186; 87205; 87206; 94150; 94640; 94667; 94668; 96365; 96368; C9113; J1650; J2250; J2270; J2370; J2405; J2543; J3010; J3370; J7030; J7040; J7050

== ENCOUNTER 2017-02-10 20:39 | Emergency (ER) | payer SELFPAY ==
[~2017-02-10] VITALS: Ht 180.3 cm; Wt 77.0 kg
[~2017-02-10 20:39] MED LIST changes: -DOCU1CAP39 PO; +KETO10 PO; +LEVA500T PO; -MILKSUS PO
[2017-02-10 20:41] VITALS: BP 120/73; PULSE 89; RESP 16; TEMP 98.5; O2SAT 97
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
[2017-02-10] MEDS ORDERED: ALBU6.7H INH (22:04)
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
== END 2017-02-10 22:19 | disposition home or self-care (01) ==
LOC: NEPK 20:39
DX: J45.909 Unspecified asthma, uncomplicated (principal); M32.9 Systemic lupus erythematosus, unspecified
CPT/HCPCS: 71020; 99283

== ENCOUNTER 2017-08-28 22:57 | Emergency (ER) | payer MEDICAID ==
[~2017-08-28] VITALS: Ht 180.3 cm; Wt 73.0 kg
[~2017-08-28 22:57] MED LIST changes: +ALBU6.7H INH
[2017-08-28 23:07] VITALS: BP 152/87; PULSE 132; RESP 14; TEMP 98.6; O2SAT 97
[2017-08-28] MEDS ORDERED: LORazepam 2 MG/ML VIAL IV PUSH ONE (23:45)
[2017-08-28] MEDS ORDERED: SODIUM CHLOR 0.9% 1000 ML INJ 1,000 ML IV ONE (23:45)
[2017-08-29 00:04] VITALS: BP 145/68; PULSE 139; RESP 14; O2SAT 96
[2017-08-29] MEDS ORDERED: NALOXONE HCL 0.4 MG/ML AMP IV PUSH PRN (01:15)
[2017-08-29 02:00] VITALS: BP 127/58; PULSE 116; RESP 16; O2SAT 97
[2017-08-29 03:27] VITALS: BP 126/67; PULSE 108; RESP 16; O2SAT 98
[2017-08-29 04:00] VITALS: BP 129/71; PULSE 100; RESP 16; O2SAT 96
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
[2017-08-29 05:00] VITALS: BP 123/59; PULSE 92; RESP 16; O2SAT 99
[2017-08-29 06:00] VITALS: BP 105/51; PULSE 84; RESP 14; O2SAT 97
== END 2017-08-29 06:37 | disposition home or self-care (01) ==
LOC: NEPE 22:57
DX: T40.1X1A Poisoning by heroin, accidental (unintentional), initial encounter (principal); F19.10 Other psychoactive substance abuse, uncomplicated; M32.9 Systemic lupus erythematosus, unspecified; F41.9 Anxiety disorder, unspecified; F32.9 Major depressive disorder, single episode, unspecified; Z72.0 Tobacco use
CPT/HCPCS: 96361; 96374; 96375; 99284; J2060; J2310; J7030

== ENCOUNTER 2017-09-12 05:51 | Emergency (ER) | payer MEDICAID ==
[~2017-09-12] VITALS: Ht 180.3 cm; Wt 71.8 kg
[2017-09-12 05:56] VITALS: BP 133/69; PULSE 122; RESP 16; TEMP 97.8; O2SAT 100
[2017-09-12] MEDS ORDERED: LIDOCAINE 2%/EPINEPHrine 1:100,000 20ML MDV NERV BLOCK ONE (06:00)
[2017-09-12] MEDS ORDERED: LIDOCAINE HCL 2% 50 ML VIAL ONE (06:02)
[2017-09-12] MEDS ORDERED: KETOROLAC TROMETHAMINE 30 MG/ML (IVP) VIAL IV PUSH ONE (06:15)
[2017-09-12] MEDS ORDERED: BACITRACIN TOP OINT 15 GM TUBE TOPICAL ONE (06:15)
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
[2017-09-12] MEDS ORDERED: TETANUS/DIPHTHERIA TOXOID ADULT 0.5 ML VIAL IM ONE (06:45)
[2017-09-12 07:25] LABS: AUTOMATED NEUTROPHIL # 10.6 TH/MM3 (1.8-7.7); BASOPHIL % 0.1 % (0.0-2.0); HEMATOCRIT 40.5 % (39.0-51.0); HEMOGLOBIN 14.2 GM/DL (13.0-17.0); LYMPH % 16.4 % (9.0-44.0); LYMPHOCYTE # 2.3 TH/MM3 (1.0-4.8); MEAN CORPUSCULAR HEMOGLOBIN 31.9 PG (27.0-34.0); MEAN CORPUSCULAR HGB CONC 35.1 % (32.0-36.0); MEAN PLATELET VOLUME 8.3 FL (7.0-11.0); NEUT % 76.5 % (16.0-70.0); PLATELET COUNT 287 TH/MM3 (150-450); RED BLOOD COUNT 4.45 MIL/MM3 (4.50-5.90); RED CELL DISTRIBUTION WIDTH 12.8 % (11.6-17.2); WHITE BLOOD COUNT 13.9 TH/MM3 (4.0-11.0)
[2017-09-12 07:42] LABS: ALBUMIN 4.1 GM/DL (3.4-5.0); ALT (GPT) 27 U/L (12-78); AST (GOT) 21 U/L (15-37); BICARBONATE 28.6 MEQ/L (21.0-32.0); BLOOD UREA NITROGEN 14 MG/DL (7-18); CALCIUM 9.2 MG/DL (8.5-10.1); CHLORIDE 104 MEQ/L (98-107); CREATININE 1.18 MG/DL (0.60-1.30); GLOMERULAR FILTRATION RATE 73 ML/MIN (>89); GLUCOSE,RANDOM 101 MG/DL (74-106); SODIUM (NA) 141 MEQ/L (136-145)
[2017-09-12 07:44] LABS: ALKALINE PHOSPHATASE 55 U/L (45-117); TOTAL BILIRUBIN ADULT 0.3 MG/DL (0.2-1.0); TOTAL PROTEIN 8.5 GM/DL (6.4-8.2)
--- NOTE | 2017-09-12 08:23 | PD ---
Physical Exam Narrative GENERAL: SKIN: Warm and dry. HEAD: vinita noted on scalp. Normocephalic. EYES: Pupils equal and round. No scleral icterus. No injection or drainage. ENT: No nasal bleeding or discharge. Mucous membranes pink and moist. NECK: Trachea midline. No JVD. CARDIOVASCULAR: Regular rate and rhythm. RESPIRATORY: No accessory muscle use. Clear to auscultation. Breath sounds equal bilaterally. GASTROINTESTINAL: Abdomen soft, non-tender, nondistended. Hepatic and splenic margins not palpable. MUSCULOSKELETAL: Extremities without clubbing, cyanosis, or edema. No obvious deformities. NEUROLOGICAL: Awake and alert. No obvious cranial nerve deficits. Motor grossly within normal limits. Five out of 5 muscle strength in the arms and legs. Normal speech. PSYCHIATRIC: Appropriate mood and affect; insight and judgment normal. Data Data Last Documented VS Vital Signs Date Time Temp Pulse Resp B/P (MAP) Pulse Ox O2 Delivery O2 Flow Rate FiO2 09/12/17 05:56 97.8 122 16 133/69 (90) 100 Orders Orders Lidocai-Epi 2%-1:100,000 Inj (Xylocaine- (09/12/17 06:00) Ketorolac Inj (Toradol Inj) (09/12/17 06:15) Lidocaine 2% Inj (Xylocaine 2% Inj) (09/12/17 06:02) Bacitracin Oint (Baciguent Oint) (09/12/17 06:15) Tetanus/Diphtheria Tox Adult (Tetanus/Di (09/12/17 06:45) Complete Blood Count With Diff (09/12/17 06:50) Comprehensive Metabolic Panel (09/12/17 06:50) Lipase (09/12/17 06:50) Urinalysis - C+S If Indicated (09/12/17 06:50) Labs Laboratory Tests Test 09/12/17 06:58 White Blood Count 13.9 TH/MM3 Red Blood Count 4.45 MIL/MM3 Hemoglobin 14.2 GM/DL Hematocrit 40.5 % Mean Corpuscular Volume 91.0 FL Mean Corpuscular Hemoglobin 31.9 PG Mean Corpuscular Hemoglobin Concent 35.1 % Red Cell Distribution Width 12.8 % Platelet Count 287 TH/MM3 Mean Platelet Volume 8.3 FL Neutrophils (%) (Auto) 76.5 % Lymphocytes (%) (Auto) 16.4 % Monocytes (%) (Auto) 7.0 % Eosinophils (%) (Auto) 0.0 % Basophils (%) (Auto) 0.1 % Neutrophils # (Auto) 10.6 TH/MM3 Lymphocytes # (Auto) 2.3 TH/MM3 Monocytes # (Auto) 1.0 TH/MM3 Eosinophils # (Auto) 0.0 TH/MM3 Basophils # (Auto) 0.0 TH/MM3 CBC Comment DIFF FINAL Differential Comment Blood Urea Nitrogen 14 MG/DL Creatinine 1.18 MG/DL Random Glucose 101 MG/DL Total Protein 8.5 GM/DL Albumin 4.1 GM/DL Calcium Level 9.2 MG/DL Alkaline Phosphatase 55 U/L Aspartate Amino Transf (AST/SGOT) 21 U/L Alanine Aminotransferase (ALT/SGPT) 27 U/L Total Bilirubin 0.3 MG/DL Sodium Level 141 MEQ/L Potassium Level 4.3 MEQ/L Chloride Level 104 MEQ/L Carbon Dioxide Level 28.6 MEQ/L Anion Gap 8 MEQ/L Estimat Glomerular Filtration Rate 73 ML/MIN Lipase 101 U/L [facility] Medical Record Reviewed: Yes Supervised Visit with RUCHI: No Narrative Course Patient CBC does not show any leukocytosis, and the left shift, no anemia and normal platelet count. Complete metabolic profile shows normal electrolytes, normal kidney functions. Patient's vitals are stable, he is no longer tachycardic, he is no longer tachycardic nor hypertensive. Patient is a and O 4, fully oriented and is able to ambulate on his own and does not appear to be under the influence currently. Patient is advised to continue resting at home keep hydrated with nonalcoholic beverages and to avoid further substance abuse. Diagnosis Primary Impression: Scalp laceration Qualified Codes: S01.01XA - Laceration without foreign body of scalp, initial encounter Patient Instructions: General Instructions, Laceration (ED) Additional Instruction: Patient is advised to have his vinita removed within 5-7 days from today. Scripts No Active Prescriptions or Reported Meds Disposition: 01 DISCHARGE HOME Condition: Stable Rocco Ching MD Sep 12, 2017 08:23
[2017-09-12 09:02] VITALS: BP 127/89
== END 2017-09-12 09:15 | disposition home or self-care (01) ==
LOC: NEPC 05:51
DX: S01.01XA Laceration without foreign body of scalp, initial encounter (principal); T43.621A Poisoning by amphetamines, accidental (unintentional), initial encounter; R00.0 Tachycardia, unspecified; R06.02 Shortness of breath; M32.9 Systemic lupus erythematosus, unspecified; F41.9 Anxiety disorder, unspecified; F17.200 Nicotine dependence, unspecified, uncomplicated; Z23 Encounter for immunization; W22.8XXA Striking against or struck by other objects, initial encounter
CPT/HCPCS: 12002; 80053; 83690; 85025; 90471; 90714; 99284; J1885

== ENCOUNTER 2017-09-19 19:40 | Emergency (ER) | payer MEDICAID ==
[~2017-09-19] VITALS: Ht 167.6 cm; Wt 72.0 kg
[2017-09-19 19:56] VITALS: BP 119/59; PULSE 86; RESP 16; TEMP 97.6; O2SAT 100
[2017-09-19] MEDS ORDERED: ALBUAER3 INH (21:38)
[2017-09-19] MEDS ORDERED: PRED20 PO (21:38)
[2017-09-19] MEDS ORDERED: AZIT250T3 PO (21:38)
--- NOTE | 2017-09-19 21:42 | PD ---
HPI Chief Complaint: Wound/Suture/Staple Re-Check Time Seen by Provider: 21:32 Travel History International Travel<30 days: No Contact w/Intl Traveler<30days: No Traveled to known affect area: No History of Present Illness HPI 27-year-old male presents for evaluation of staple removal. He was seen here on September 12 for scalp laceration which required repair with vinita. He has no pain or itching at the site of the laceration. In addition the patient is complaining of cough and congestion which started 5 weeks ago. The cough is productive with yellow sputum. Denies fevers, chills, sore throat. He is a tobacco user. He denies history of asthma or COPD. He has no other complaints at this time. PFSH Past Medical History Asthma: No Autoimmune Disease: Yes (LUPUS) Anxiety: Yes Depression: Yes Cancer: No Cardiovascular Problems: No COPD: No Diabetes: No Diminished Hearing: No Endocrine: No Gastrointestinal Disorders: No GERD: No Genitourinary: No Hiatal Hernia: No Immune Disorder: No Implanted Vascular Access Dvce: No Kidney Stones: No Musculoskeletal: No Neurologic: No Psychiatric: Yes Reproductive: No Respiratory: No Immunizations Current: Yes Renal Failure: No Thyroid Disease: No Ulcer: No Tetanus Vaccination: < 5 Years Influenza Vaccination: Yes Past Surgical History Thoracic Surgery: Yes (CHEST TUBE PLACED/REMOVED) Other Surgery: Yes Social History Alcohol Use: No Tobacco Use: Yes (1/2 ppd) 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 Review of Systems Except as stated in HPI: all other systems reviewed are Neg Physical Exam Narrative GENERAL: Well-developed well-nourished male in no acute distress SKIN: Warm and dry. Well-healing scalp laceration with multiple vinita in place. There is some scabbing. There is no erythema, purulent drainage or dehiscence. HEAD: Skin as noted above normocephalic. EYES: Pupils equal and round. No scleral icterus. No injection or drainage. ENT: No nasal bleeding or discharge. Mucous membranes pink and moist. NECK: Trachea midline. No JVD. CARDIOVASCULAR: Regular rate and rhythm. No murmur appreciated. RESPIRATORY: No accessory muscle use. Faint expiratory wheezing bilaterally. Data Data Last Documented VS Vital Signs Date Time Temp Pulse Resp B/P (MAP) Pulse Ox O2 Delivery O2 Flow Rate FiO2 09/19/17 19:56 97.6 86 16 119/59 (79) 100 MDM Medical Decision Making Medical Screen Exam Complete: Yes Emergency Medical Condition: Yes Medical Record Reviewed: Yes Differential Diagnosis Staple removal, wound dehiscence, infected wound Narrative Course The vinita were removed without incident. The patient will be treated for his respiratory tract infection with azithromycin, prednisone, albuterol. Diagnosis Primary Impression: Bronchitis Additional Impression: Removal of vinita Additional Instructions: Medication as prescribed. Follow-up with primary care physician as needed. Return for any emergent medical conditions. Med/Other Pt SpecificInfo: Prescription(s) given Scripts Albuterol 8.5 GM Inh (Proair Hfa 8.5 GM Inh) 90 Mcg/Act Aer 2 PUFF INH Q4-6H Y for SHORTNESS OF BREATH, #1 INHALER 0 Refills 108 mcg/actuation Prov: Carlos Galarza MD 09/19/17 Prednisone (Prednisone) 20 Mg Tab 20 MG PO BID for 5 Days, #10 TAB 0 Refills Prov: Carlos Galarza MD 09/19/17 Azithromycin (Azithromycin) 250 Mg Tab 250 MG PO DIRECTED for Infection, #6 TAB 0 Refills Take 2 tabs (500 mg) on day 1 then 1 tab daily x 4 days. Prov: Carlos Galarza MD 09/19/17 Disposition: 01 DISCHARGE HOME Condition: Stable Shiraz Epps Sep 19, 2017 21:42
== END 2017-09-19 21:57 | disposition home or self-care (01) ==
LOC: NEPD 19:40
DX: J40 Bronchitis, not specified as acute or chronic (principal); Z48.02 Encounter for removal of sutures; M32.9 Systemic lupus erythematosus, unspecified; F41.9 Anxiety disorder, unspecified; F32.9 Major depressive disorder, single episode, unspecified; F17.200 Nicotine dependence, unspecified, uncomplicated
CPT/HCPCS: 99281